=== PATIENT | male | born 1975 | race Caucasian/White ===

== ENCOUNTER 2020-10-10 03:14 | Emergency (ER) | payer OTHER ==
[2020-10-10 04:12] LABS: BASOPHIL 0.5 % (0-2); HCT 39.5 % (42.0-52.0); HGB 12.1 g/dl (13.2-18.0); LYMPHOCYTE 26.2 % (15-48); MCH 29.7 pg (25.0-31.0); MCHC 30.6 g/dL (32.0-36.0); MCV 96.8 fL (78.0-100.0); MONOCYTE 7.6 % (0-12); MPV 11.5 fL (6.0-9.5); NEUTROPHIL 62.2 % (41-80); NRBC 0; PLT 170 K/uL (150-400); RBC 4.08 M/uL (4.70-6.00); RDW 14.6 % (11.5-14.0); WBC 5.7 K/uL (4.0-10.5)
[2020-10-10 04:33] LABS: ALBUMIN 3.5 g/dL (3.4-5.0); BILIRUBIN - TOTAL 0.4 mg/dL (0.2-1.0); BUN/CREAT RATIO (CALC) 5.2 RATIO; CREATININE 5.18 mg/dL (0.67-1.17); GLOBULIN (CALCULATION) 4.5 g/dL; POTASSIUM 4.5 mmol/L (3.5-5.1)
[2020-10-10 05:12] LABS: BILIRUBIN NEGATIVE (NEGATIVE); BLOOD 2+ Ery/uL (NEGATIVE); CLARITY CLEAR (CLEAR); COLOR YELLOW (YELLOW); GLUCOSE (U) 3+ mg/dL (NORMAL); LEUKOCYTES NEGATIVE Leu/uL (NEGATIVE); NITRITE NEGATIVE (NEGATIVE); PROTEIN 3+ mg/dL (NEGATIVE); UROBILINOGEN 0.2 mg/dL (0.2-1.0)
[2020-10-10 05:21] LABS: BACTERIA TRACE
[2020-10-10 05:22] LABS: SPERM PRESENT
[2020-10-10 05:23] LABS: AMPHETAMINES NEGATIVE (NEGATIVE); BARBITURATES NEGATIVE (NEGATIVE); ECSTASY (MDMA) NEGATIVE (NEGATIVE); MARIJUANA (THC) NEGATIVE (NEGATIVE); METHADONE NEGATIVE (NEGATIVE); OPIATES NEGATIVE (NEGATIVE); OXYCODONE POSITIVE (NEGATIVE)
== END 2020-10-10 13:40 | disposition other institution (70) ==
LOC: FER 03:14
PROVIDERS: Emergency Medicine
DX: R20.2 Paresthesia of skin (principal); N39.0 Urinary tract infection, site not specified; I21.29 ST elevation (STEMI) myocardial infarction involving other sites; Z20.822 Contact with and (suspected) exposure to COVID-19; I25.10 Atherosclerotic heart disease of native coronary artery without angina pectoris; I10 Essential (primary) hypertension; E11.9 Type 2 diabetes mellitus without complications; J45.909 Unspecified asthma, uncomplicated; F17.200 Nicotine dependence, unspecified, uncomplicated; Z99.2 Dependence on renal dialysis; Z88.1 Allergy status to other antibiotic agents; Z88.0 Allergy status to penicillin
CPT/HCPCS: 36415; 70450; 70544; 70547; 70551; 71045; 80053; 80305; 81001; 84443; 84484; 85025; 93005; J1815; J3490; U0002